=== PATIENT | female | born 1955 | race Caucasian/White ===

== ENCOUNTER 2021-06-04 08:08 | Day surgery (SDC) | payer OTHER ==
[~2021-06-04] VITALS: Ht 177.8 cm; Wt 85.9 kg
[2021-06-04] VITALS (7 sets, daily range): BP systolic 110–140; BP diastolic 54–72; PULSE 53–80; TEMP 97.7–99.4
[2021-06-04] MEDS ORDERED: BUSPAR DIVIDOSE15 MG PO (08:29)
[2021-06-04] MEDS ORDERED: CIPRO 500MG TA500 MG PO ×2 (08:30→14:35)
[2021-06-04] MEDS ORDERED: COZAAR 25MG25 MG/TAB PO (08:30)
[2021-06-04] MEDS ORDERED: ZOLOFT 50MG50 MG PO (08:31)
[2021-06-04] MEDS ORDERED: MELATIN 3 MG-11 TAB PO (08:31)
[2021-06-04] MEDS ORDERED: PROTONIX 40MG T40 MG PO (08:31)
[2021-06-04] MEDS ORDERED: MOTRIN 600600 MG/TAB PO ×3 (09:07→14:35)
[2021-06-04] MEDS ORDERED: FLAGYL500 MG PO ×3 (09:07→14:35)
[2021-06-04] MEDS ORDERED: NORCO 325 MG-51 TAB PO ×3 (09:08→14:35)
[2021-06-04 09:25] LABS: BASO # 0.1 K/mm3 (0.0-0.2); EOS # 0.2 K/mm3 (0.0-0.7); EOS % 3.8 % (0-4.0); GRAN # 3.8 K/mm3 (1.4-6.5); GRAN % 62.8 % (42.2-75.2); HEMATOCRIT 38.2 % (37.0-47.0); HEMOGLOBIN 13.4 g/dl (12.5-16.0); LYMPH # 1.3 K/mm3 (1.2-3.4); LYMPH % 21.2 % (20.0-51.0); MEAN CELL VOLUME 87 fl (80.0-100.0); MEAN CORPUSCULAR HEMOGLOBIN 31 pg (27.0-31.0); MEAN CORPUSCULAR HGB CONC 35 g/dl (33.0-37.0); MEAN PLATELET VOLUME 10.1 fl (7.4-10.4); MONO # 0.7 K/mm3 (0.1-0.6); MONO % 10.9 % (1.7-9.3); PLATELET COUNT 304 K/mm3 (130-400); RED BLOOD COUNT 4.38 M/mm3 (4.10-5.30); REDCELL DISTRIBUTION WIDTH-CV 11.8 % (11.5-14.5)
[2021-06-04 09:42] LABS: ALBUMIN 3.8 gm/dL (3.4-4.8); CALCIUM 10.1 mg/dL (8.4-10.2); CREATININE, serum 0.95 mg/dL (0.57-1.11); POTASSIUM 3.9 mmol/L (3.5-4.5); TOTAL PROTEIN 7.6 gm/dL (6.2-8.1)
--- NOTE | 2021-06-04 14:50 | NUR ---
The patient arrived back to [facility] from the recovery room at this time. The patient appears drowsy but arouses easily to her name. The patient has 5 lap sites to her abdomen that appear without redness or edema and are covered with surgical glue. Post operative vital signs were started at this time. The patient denies wanting to try anything to eat or drink at this time. Call light is within reach. Will continue to monitor the patient.
--- NOTE | 2021-06-04 15:05 | NUR ---
The patient appears to be resting comfortably on the cart with her eyes closed at this time. Respirations even and unlabored. Call light is within reach. Will continue to monitor the patient.
--- NOTE | 2021-06-04 15:20 | NUR ---
The patient's is present at her bedside after picking up her prescriptions. The patient conitnues to rest quielty on the cart. Call light remains within reach. Will continue to monitor the patient.
--- NOTE | 2021-06-04 15:35 | NUR ---
The patient appears more alert at this time and reports some pain starting the the epigastric region. The patient agrees to try some applesauce and toast along with some apple juice at this time. The nurse instructed the patient that after she is able to tolerate getting some food down she will be given an oral pain medicaiton. She verbalized understanding and denies any further needs at this time. Will continue to monitor the patient.
--- NOTE | 2021-06-04 16:05 | NUR ---
The patient appears to be tolerating the food and drink well without any complaints of nausea. The patient reports that she has been "burping alot" which has helped with her discomfort but would like to proceed with a prn dose of oral pain medication before her hour drive home. The patient was given PRN dose of [place] one tab at this time. The patient's is going to go pickle sorter the patient's prescriptions as they were not ready yet when he tried earlier. The patient agrees to try to ambulate to the bathroom with her next vital sign check at 1635. Will continue to monitor the patient.
--- NOTE | 2021-06-04 16:35 | NUR ---
The patient voided without difficulty and voices a desire to be discharged home. The nurse instructed the patient to get dressed and notify the staff when she is ready to review her discharge paperwork. The patient's notified her that he is back from the pharmacy and will meet at the patient entrance when is escorted out.
--- NOTE | 2021-06-04 16:45 | NUR ---
Discharge instructions were reviewed with the patient at this time. She verbalized understanding and have no questions for the nurse at this time. The patient's IV to her right hand was removed and a pressure dressing was applied to the site. The patient is dressed and ready to be escorted out.
--- NOTE | 2021-06-04 16:55 | NUR ---
The patient was escorted out via wheelchair to a private vehicle by TASHA Mcdermott. The patient's belongings and discharge paperwork were sent with her. The patient's is present to drive her home.
== END 2021-06-04 16:55 | disposition home or self-care (01) ==
LOC: SDCO 08:08
PROVIDERS: Surgery
DX: K80.00 Calculus of gallbladder with acute cholecystitis without obstruction (principal); K21.9 Gastro-esophageal reflux disease without esophagitis; K58.9 Irritable bowel syndrome, unspecified; M19.90 Unspecified osteoarthritis, unspecified site; G47.00 Insomnia, unspecified; I34.1 Nonrheumatic mitral (valve) prolapse; I10 Essential (primary) hypertension; G47.30 Sleep apnea, unspecified; E03.9 Hypothyroidism, unspecified; F32.A Depression, unspecified; F41.9 Anxiety disorder, unspecified; Z90.710 Acquired absence of both cervix and uterus; Z79.899 Other long term (current) drug therapy; Z90.89 Acquired absence of other organs; Z80.1 Family history of malignant neoplasm of trachea, bronchus and lung; Z80.6 Family history of leukemia; Z83.3 Family history of diabetes mellitus; Z80.3 Family history of malignant neoplasm of breast
CPT/HCPCS: J1100; J1885; J2405; J2704; J7120